=== PATIENT | male | born 1965 | race Caucasian/White ===

== ENCOUNTER 2022-02-09 17:22 | Emergency (ER) | payer MEDICAID ==
--- NOTE | 2022-02-09 17:52 | ED Physician Documentation ---
History of Present Illness - Stated complaint Stated Complaint: LT LEG PX - Chief complaint Chief Complaint: Ext Problem - History obtained from History obtained from: Patient - History of Present Illness Pain level max: 2 Pain level now: 0 Improved by: walking - Additonal information Additional information: Patient with left posterior thigh pain for the past 2 years. He states he has never seen a doctor about this. He states that it hurts when he lies in bed, but feels better when he is up and walking. He states that after 2 years he decided he should get this "checked out". No swelling. No known injury. No numbness or tingling. No skin changes. He states that the pain is in the middle of the posterior aspect of the left thigh. Review of Systems Constitutional: denies: Fever, Chills GI: denies: Vomiting, Diarrhea Skin: denies: Rash Musculoskeletal: denies: Neck pain, Back pain Neurologic: denies: Headache PD PAST MEDICAL HISTORY - Past Medical History Past Medical History: Yes - Past Surgical History Past Surgical History: Yes Ortho: Arthroscopic surgery - Present Medications Home Medications: Ambulatory Orders Medication Instructions Recorded Confirmed Aspirin [Susu] 325 mg PO DAILY 03/31/14 02/09/22 - Allergies Allergies/Adverse Reactions: Allergies Allergy/AdvReac Type Severity Reaction Status Date / Time Penicillins Allergy Unknown Verified 02/09/22 17:34 - Social History Does the pt smoke?: No Smoking Status: Never smoker Does the pt drink ETOH?: No Does the pt have substance abuse?: No PD ED PE NORMAL - Vitals Vital signs reviewed: Yes - General General: Alert and oriented X 3, No acute distress - HEENT HEENT: Moist mucous membranes - Respiratory Respiratory: No respiratory distress - Derm Derm: Warm and dry - Extremities Extremities: No deformity, No tenderness to palpate, Normal ROM s pain, No edema, No calf tenderness / cord, Other (Normal examination of the bilateral lower extremities. No skin changes. No visible swelling. No tenderness. Full range of motion without pain) - Neuro Neuro: Alert and oriented X 3 Results - Vitals Vitals: Vital Signs - 24 hr 02/09/22 02/09/22 17:30 19:00 Temperature 36.5 C 36.5 C Heart Rate 86 83 Respiratory 20 16 Rate Blood Pressure 143/106 H 158/99 H O2 Saturation 96 99 Oxygen O2 Source Room air - Rads (name of study) Duplex ultrasound left lower extremity Radiology: Final report received, EMP read contemporaneously, See rad report (No acute abnormality) PD MEDICAL DECISION MAKING - ED course Complexity details: reviewed results, re-evaluated patient, considered differential, d/w patient ED course: Unclear etiology of the patient's posterior left thigh pain. No acute findings on ultrasound. We will have him follow-up with the primary care provider for further care. Ambulating without any difficulty in the emergency department. No bony tenderness. No pain with weightbearing. No skin changes. No visible swelling. Patient counseled regarding signs and symptoms for which I believe and urgent re-evaluation would be necessary. Patient with good understanding of and agreement to plan and is comfortable going home at this time This document was made in part using voice recognition software. While efforts are made to proofread this document, sound alike and grammatical errors may occur. Departure - Departure Disposition: 01 Home, Self Care Clinical Impression: Leg pain Qualifiers: Laterality: left Qualified Code(s): M79.605 - Pain in left leg Condition: Good Instructions: ED Acute Pain [facility] Follow-Up: [facility] [Provider Group] [facility] [Provider Group] [facility] [Provider Group] Comments: The cause of your leg pain is unclear. You need to follow-up with your primary care provider for further care. Your ultrasound does not show any blood clots tonight. I would start on Motrin and Tylenol. I have listed several clinics above that you can follow-up with. [facility] also [place] an office [place]. Discharge Date/Time: 02/09/22 19:03
--- NOTE | 2022-02-09 18:54 | Ultrasound Report ---
PROCEDURE: Duplex Ext Veins Left INDICATIONS: LLE pain TECHNIQUE: Real-time imaging, as well as color and pulse Doppler interrogation, were performed of the lower extr emity deep veins from the inguinal ligament to the popliteal fossa. COMPARISON: None. FINDINGS: The deep veins are normally compressible, and free of intraluminal thrombus. The calf vei ns are not well seen however. Color and pulse Doppler demonstrate normal phasic intraluminal flow. T here is normal augmentation response to distal compression maneuver. IMPRESSION: No evidence of DVT. Reviewed by: Kishan Olsen on 02/09/2022 6:53 PM PDT Approved by: Kishan Olsen on 02/09/2022 6:53 PM PDT Station ID: [id number]
[2022-02-09 19:03] VITALS: BP 158/99
== END 2022-02-09 19:03 | disposition home or self-care (01) ==
LOC: ED 17:22
DX: M79.652 Pain in left thigh (principal)
CPT/HCPCS: 99282; 99284

== ENCOUNTER 2023-07-13 11:12 | Emergency (ER) | payer MEDICAID, OTHER ==
--- NOTE | 2023-07-13 11:38 | ED Physician Documentation ---
History of Present Illness - Stated complaint Stated Complaint: SWOLLEN LEGS/FEET - Chief complaint Chief Complaint: Cardiac - Additonal information Additional information: 58-year-old male presents to the emergency department for evaluation of about 10 days bilateral lower extremity leg swelling. States that it just began suddenly and never improved. Now the swelling extends to mid thigh. He denies orthopnea, dyspnea, chest pain. He denies tobacco or alcohol use. Denies any history of hypertension or diabetes. Has not been seen by a doctor in quite some time. 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 He has no cough or fevers. No recent surgeries or immobilization. No history of DVT or cancer. Patient states that he weighs 270 now when he previously used to weigh 220. On presentation in the emergency department he is alert and well-appearing. No dyspnea is noted. Afebrile. Heart rate of 71. Blood pressure 145/91. Saturating 97% on room air Review of Systems Constitutional: denies: Fever Throat: reports: Dental pain / toothache Cardiac: reports: Pedal edema. denies: Chest pain / pressure, Palpitations, Calf pain Respiratory: denies: Dyspnea, Cough, Hemoptysis, Wheezing GI: reports: Reviewed and negative : reports: Reviewed and negative Skin: reports: Reviewed and negative Musculoskeletal: reports: Reviewed and negative PD PAST MEDICAL HISTORY - Past Surgical History Past Surgical History: Yes Ortho: Arthroscopic surgery - Present Medications Home Medications: Ambulatory Orders Medication Instructions Recorded Confirmed Aspirin [Susu] 325 mg PO DAILY 03/31/14 02/09/22 Furosemide [Lasix] 20 mg PO BID 7 Days #14 tablet 07/13/23 Naproxen 250 mg PO Q6HR 07/13/23 Potassium Chloride 20 meq PO DAILY #7 tab 07/13/23 - Allergies Allergies/Adverse Reactions: Allergies Allergy/AdvReac Type Severity Reaction Status Date / Time Penicillins Allergy Unknown Verified 07/13/23 11:22 - Social History Does the pt smoke?: No Smoking Status: Never smoker Does the pt drink ETOH?: No Does the pt have substance abuse?: No PD ED PE NORMAL - General General: Alert and oriented X 3, No acute distress, Well developed/nourished - HEENT HEENT: Atraumatic - Neck Neck: Supple, no meningeal sign, No adenopathy - Cardiac Cardiac: RRR, No murmur - Respiratory Respiratory: No respiratory distress, Clear bilaterally - Abdomen Abdomen: Normal bowel sounds, Soft - Derm Derm: Normal color, Warm and dry, No rash - Extremities Extremities: No deformity, Other (2-3+ pitting edema/anasarca extending from the feet bilaterally to mid thighs. No ascites palpated of the abdomen) - Neuro Neuro: Alert and oriented X 3, risk management manager 2-12 intact Eye Opening: Spontaneous Motor: Obeys Commands Verbal: Oriented GCS Score: 15 - Psych Psych: Normal mood Results - Vitals Vitals: Vital Signs - 24 hr 07/13/23 07/13/23 07/13/23 11:17 11:36 13:39 Temperature 36.0 C L Heart Rate 71 72 66 Respiratory 20 17 18 Rate Blood Pressure 145/91 H O2 Saturation 95 96 96 Oxygen O2 Source Room air - EKG (time done) 1133 EKG releavant findings:: EKG personally interpreted by author of this note. Relevant findings are: Rate: Rate (enter#) (74) Rhythm: NSR [place]: Normal Intervals: Normal OH. No: Prolonged QT QRS: Normal Ischemia: Normal ST segments Compare to prior EKG: Old EKG unavailable Computer interpretation: Agree with computer - Labs Labs: Laboratory Tests 07/13/23 07/13/23 07/13/23 11:34 11:34 11:34 WBC 8.3 RBC 4.25 L Hgb 13.1 L Hct 40.6 L MCV 95.5 H MCH 30.8 MCHC 32.3 RDW 13.2 Plt Count 275 MPV 10.3 Neut # (Auto) 3.9 Lymph # (Auto) 2.4 [place] # (Auto) 0.9 Eos # (Auto) 0.9 H Baso # (Auto) 0.2 H Absolute Nucleated RBC 0.00 Nucleated RBC % 0.0 Sodium 137 Potassium 4.4 Chloride 101 Carbon Dioxide 31 Anion Gap 5.0 L BUN 19 Creatinine 0.9 Estimated GFR (MDRD) 86 L Glucose 112 H Calcium 9.3 Total Bilirubin 0.3 AST 24 ALT 33 Alkaline Phosphatase 128 H B-Natriuretic Peptide 39 Total Protein 6.6 Albumin 4.2 Globulin 2.4 Albumin/Globulin Ratio 1.8 Lipase 16 - Rads (name of study) cxr Relevant Findings:: Final report received (No acute cardiopulmonary process) BLE us Relevant Findings:: Final report received (No evidence of deep vein thrombosis bilaterally) PD Medical Decision Making - ED course Complexity details: reviewed results, re-evaluated patient, considered differential, d/w patient ED course: 58-year-old male presents emergency department for evaluation of 10 days bilateral lower extremity edema. He has fairly significant pitting edema and early anasarca but denies any cardiac or pulmonary symptoms. Chest x-ray as interpreted by the radiologist was without findings of pleural effusion, cardiomegaly, congestive heart failure or focal infiltrates. I did obtain CBC, electrolytes and a BNP. Per my interpretation no acute worrisome abnormalities or electrolyte derangement. His BNP is not elevated, it is 39. Bilateral lower extremity DVT was also obtained and was negative for deep vein thrombosis. At this time it is not clear what the cause of his extremity swelling is. Clinically he does not have findings of liver or renal failure. He could have pulmonary hypertension. He would benefit from referral to cardiology. He will be started on furosemide 20 mg twice daily for the next week with some associated potassium. He is advised to follow closely with either the walk-in clinics or primary care doctor as I believe he benefit from referral to cardiology. The usual emergent return precautions for worsening symptoms was discussed Departure - Departure Disposition: 01 Home, Self Care Clinical Impression: Bilateral lower extremity edema Condition: Stable Record reviewed to determine appropriate education?: Yes Prescriptions: Furosemide [Lasix] 20 mg PO BID 7 Days #14 tablet Potassium Chloride 20 meq PO DAILY #7 tab Comments: Magdi you are seen today in the emergency department because for 10 days you have had progressive swelling of your lower extremities. An ultrasound today did not show any findings of a blood clot. A chest x-ray showed no findings of volume overload, pleural effusions or heart enlargement. Your labs today in the emergency department were all essentially normal including kidney and liver function. Your hemoglobin is normal. It is not clear what the cause of your leg swelling is. In some cases a form of heart failure, specifically right heart failure can cause the leg swelling. It is important that you follow very closely with a primary care doctor. You should obtain referral to a packaging line attendant. Over the next week I would like you to fill the prescription for the Lasix and take as directed. You can elect to take the 2 tablets in the morning as opposed to spacing them out twice daily. I would like you to follow-up in 1 week with a walk-in clinic provider in order to have your labs rechecked and to obtain referral to cardiology. If at any point you find that you are having worsening swelling, develop any chest pain or shortness of air then you should return immediately to the ER. For the next week or so would like you to buy some compressive stockings and wear them when out of bed during the day. Significantly elevating your legs especially at night will also help. Forms: PCP List
[2023-07-13 11:39] LABS: BASOPHILS # (AUTO) 0.2 10^3/uL (0.0-0.1); BASOPHILS % (AUTO) 1.8 %; EOSINOPHILS # (AUTO) 0.9 10^3/uL (0.0-0.7); EOSINOPHILS % (AUTO) 10.5 %; HCT - HEMATOCRIT 40.6 % (42.0-52.0); HGB - HEMOGLOBIN 13.1 g/dL (14.0-18.0); LYMPHOCYTES # (AUTO) 2.4 10^3/uL (1.5-3.5); MEAN CORPUSCULAR HEMOGLOBIN 30.8 pg (27.0-31.0); MEAN CORPUSCULAR HGB CONC 32.3 g/dL (32.0-36.0); MEAN CORPUSCULAR VOLUME 95.5 fL (80.0-94.0); MEAN PLATELET VOLUME 10.3 fL (7.4-11.4); MONOCYTES # (AUTO) 0.9 10^3/uL (0.0-1.0); MONOCYTES % (AUTO) 11.4 %; NEUTROPHILS # (AUTO) 3.9 10^3/uL (1.5-6.6); NEUTROPHILS % (AUTO) 46.8 %; PLT - PLATELET COUNT 275 10^3/uL (130-450); RED BLOOD COUNT 4.25 10^6/uL (4.70-6.10); RED CELL DISTRIBUTION WIDTH 13.2 % (12.0-15.0); WHITE BLOOD COUNT 8.3 x10^3/uL (4.8-10.8)
[2023-07-13 11:52] LABS: ALBUMIN 4.2 g/dL (3.2-5.5); ALBUMIN/GLOBULIN RATIO 1.8 (1.0-2.2); BILIRUBIN,TOTAL 0.3 mg/dL (0.2-1.0); CALCIUM 9.3 mg/dL (8.5-10.3); CREATININE 0.9 mg/dL (0.6-1.3); POTASSIUM 4.4 mmol/L (3.5-4.5); TOTAL PROTEIN 6.6 g/dL (6.4-8.9)
--- NOTE | 2023-07-13 11:56 | XRAY Report ---
PROCEDURE: Chest 1 View X-Ray INDICATIONS: Chest Pain TECHNIQUE: One view of the chest was acquired. COMPARISON: None. FINDINGS: Surgical changes and devices: None. Lungs and pleura: No pleural effusions or pneumothorax. Lungs are clear. Mediastinum: Mediastinal contours appear normal. Heart size is normal. Bones and chest wall: No suspicious bony lesions. Overlying soft tissues appear unremarkable. IMPRESSION: No acute radiographic abnormality on this limited portable one view study. Reviewed by: Oneal Barron MD on 07/13/2023 11:54 AM PDT Approved by: Oneal Barron MD on 07/13/2023 11:54 AM PDT Station ID: [id number]
[2023-07-13] MEDS ORDERED: FUROSEMIDE 20 MG TABLET PO STA (12:18)
[2023-07-13 14:21] VITALS: BP 128/89; O2SAT 97
--- NOTE | 2023-07-13 14:24 | Ultrasound Report ---
PROCEDURE: Duplex Ext Veins Bilateral INDICATIONS: Bilateral lower extremity swelling. TECHNIQUE: Real-time imaging, as well as color and pulse Doppler interrogation, were performed of the deep veins of both legs from the inguinal ligament to the popliteal fossa. Attempted visualization of the calf veins was performed. COMPARISON: None FINDINGS: The deep veins are normally compressible, and free of intraluminal thrombus. Color and pu lse Doppler demonstrate normal phasic intravascular flow. There is normal augmentation response to d istal compression maneuver. IMPRESSION: No deep venous thrombosis of the visualized lower extremities. Reviewed by: Isabel Kilgore MD, PhD on 07/13/2023 2:22 PM PDT Approved by: Isabel Kilgore MD, PhD on 07/13/2023 2:22 PM PDT Station ID: [id number]
== END 2023-07-13 14:23 | disposition home or self-care (01) ==
LOC: ED 11:12
DX: R60.9 Edema, unspecified (principal)
CPT/HCPCS: 36415; 71045; 80053; 83690; 83880; 85025; 93005; 93970; 99284; A9270

== ENCOUNTER 2023-08-21 18:20 | Emergency (ER) | payer MEDICAID ==
[2023-08-21 18:36] VITALS: BP 154/96; O2SAT 96
[2023-08-21] MEDS ORDERED: CLINDAMYCIN 150 MG CAPSULE PO STA (18:55)
--- NOTE | 2023-08-21 18:57 | ED Physician Documentation ---
History of Present Illness - Stated complaint Stated Complaint: TOOTH PX - Chief complaint Chief Complaint: Heent - History obtained from History obtained from: Patient - History of Present Illness Timing: How many days ago (2) Pain level max: 5 Pain level now: 5 - Additonal information Additional information: 58-year-old male presents to the emergency department with 2 days of right upper molar pain. Worse with eating and drinking, nothing makes it better. No fevers. No chills. No nausea or vomiting. He also complains of pain radiating to the right ear. He has not seen his dentist yet. He states he had issues with this tooth over the past 1 year. Review of Systems Constitutional: denies: Fever, Chills GI: denies: Vomiting, Diarrhea PD PAST MEDICAL HISTORY - Past Medical History Past Medical History: Yes Cardiovascular: None Respiratory: None Neuro: None Endocrine/Autoimmune: None GI: None : None HEENT: None Psych: None Musculoskeletal: Other Derm: None - Past Surgical History Past Surgical History: Yes Ortho: Arthroscopic surgery - Present Medications Home Medications: Ambulatory Orders Medication Instructions Recorded Confirmed clindamycin HCL [Cleocin HCl] 300 mg PO Q6H #40 cap 08/21/23 - Allergies Allergies/Adverse Reactions: Allergies Allergy/AdvReac Type Severity Reaction Status Date / Time Penicillins Allergy Unknown Verified 08/21/23 18:30 - Social History Does the pt smoke?: No Smoking Status: Never smoker Does the pt drink ETOH?: No Does the pt have substance abuse?: No - Immunizations Immunizations are current?: Yes PD ED PE NORMAL - Vitals Vital signs reviewed: Yes - General General: Alert and oriented X 3, No acute distress - HEENT HEENT: Ears normal (Left ear is normal, right ear has mild erythema to the tympanic membrane.), Moist mucous membranes, Other (Right upper premolar tender to palpation, no gingival swelling. No drainable abscess. Normal phonation. No trismus.) - Neck Neck: Supple, no meningeal sign - Cardiac Cardiac: RRR - Respiratory Respiratory: No respiratory distress, Clear bilaterally - Derm Derm: Warm and dry - Neuro Neuro: Alert and oriented X 3 Results - Vitals Vitals: Vital Signs - 24 hr 08/21/23 18:31 Temperature 36.9 C Heart Rate 90 Respiratory 18 Rate Blood Pressure 154/96 H O2 Saturation 96 Oxygen O2 Source Room air PD Medical Decision Making - ED course Complexity details: considered differential, d/w patient ED course: Patient with dental caries. No evidence of acute otitis media. Will place on antibiotics for home. He is allergic to penicillins, therefore I will place him on clindamycin. He will follow-up with his dentist on Wednesday. No evidence of drainable abscess. Normal phonation. No trismus. No facial cellulitis. No evidence of sepsis. No wheezing. No stridor Patient counseled regarding signs and symptoms for which I believe and urgent re-evaluation would be necessary. Patient with good understanding of and agreement to plan and is comfortable going home at this time This document was made in part using voice recognition software. While efforts are made to proofread this document, sound alike and grammatical errors may occur. Departure - Departure Disposition: 01 Home, Self Care Clinical Impression: Pain due to dental caries Condition: Good Instructions: ED Tooth Pain Follow-Up: your,dentist on wednesday [Other] Prescriptions: clindamycin HCL [Cleocin HCl] 300 mg PO Q6H #40 cap Comments: Your prescription was sent to [facility] in [place]. Please take all antibiotics until gone. Please follow-up with your dentist on Wednesday for further care. Please return if you worsen. Forms: PCP List Discharge Date/Time: 08/21/23 19:10
== END 2023-08-21 19:10 | disposition home or self-care (01) ==
LOC: ED 18:20
DX: K02.9 Dental caries, unspecified (principal)
CPT/HCPCS: 99282; 99283; A9270